=== PATIENT | male | born 1985 | race Caucasian/White ===

== ENCOUNTER → 2021-11-15 | Outpatient (CLI) | payer BC ==
[~2021-11-15] MED LIST: ABILIFY10 MG PO; CIALIS2.5 MG PO; NEURONTIN300 MG PO; OMEPRAZOLE40 MG PO; SINGULAIR10 MG PO; TESTOSTERONE IM; XYZAL5 MG PO
== END ==
LOC: NM 11:02
PROVIDERS: ATTEND Internal Medicine Gastroenterology
DX: K80.80 Other cholelithiasis without obstruction (principal)
CPT/HCPCS: 78227; A9537

== ENCOUNTER 2021-11-16 05:26 | Inpatient (IN) | payer BC ==
[~2021-11-16] VITALS: Ht 185.4 cm; Wt 165.6 kg
[2021-11-16] MEDS ORDERED: SODIUM CHLORIDE 0.9% 1000ML 1,000 ML IV STA (05:36)
[2021-11-16] MEDS ORDERED: FENTANYL CITRATE/PF 100MCG/2 ML INJ IV PRN (05:45)
[2021-11-16] MEDS ORDERED: ONDANSETRON HCL INJ 2MG/ML 2ML 2 MG/ML VIAL IV PRN ×2 (05:45→06:45)
[2021-11-16 05:49] LABS: BASOPHILS # (AUTO) 0.1 (0.0-0.1); BASOPHILS % 0.6 % (0.0-1.0); EOSINOPHILS # (AUTO) 0.2 (0.0-0.4); EOSINOPHILS % 2.5 % (0.0-6.0); HEMATOCRIT 55.1 % (38.2-49.6); HEMOGLOBIN 17.9 g/dL (14.0-18.0); LYMPHOCYTES # (AUTO) 2.9 (1.0-3.2); LYMPHOCYTES % 35.2 % (18.0-39.1); MEAN CORPUSCULAR HEMOGLOBIN 28.8 pg (28-32); MEAN CORPUSCULAR HGB CONC 32.5 g/dL (31-35); MEAN CORPUSCULAR VOLUME 88.6 fL (81-99); MONOCYTES # (AUTO) 0.6 (0.2-0.8); MONOCYTES % 7.5 % (4.4-11.3); NEUTROPHILS # (AUTO) 4.4 (2.1-6.9); NEUTROPHILS % 53.8 % (38.7-80.0); PLATELET COUNT 209 x10e3/uL (140-360); RED BLOOD COUNT 6.22 x10e6/uL (4.3-5.7); RED CELL DISTRIBUTION WIDTH 13.1 % (11.7-14.4)
[2021-11-16] MEDS ORDERED: SODIUM CHLORIDE 0.9% 1000ML 1,000 ML ONE (05:50)
[2021-11-16] MEDS ORDERED: FENTANYL CITRATE/PF 100MCG/2 ML INJ ONE (05:52)
[2021-11-16 06:11] LABS: CLARITY,URINE SL CLOUDY (CLEAR); COLOR,URINE YELLOW (YELLOW); KETONES,URINE NEGATIVE (NEGATIVE); LEUKOCYTE ESTERASE ,URINE NEGATIVE (NEGATIVE); NITRITE,URINE NEGATIVE (NEGATIVE); PROTEIN,URINE DIPSTICK NEGATIVE (NEGATIVE); URINE UROBILINOGEN 0.2 mg/dL (0.2 - 1)
[2021-11-16 06:14] LABS: ALBUMIN 3.9 g/dL (3.5-5.0); ALBUMIN/GLOBULIN RATIO 1.2 (0.8-2.0); ANION GAP 13.6 mmol/L (8-16); CALCIUM 9.4 mg/dL (8.4-10.2); CREATININE, SERUM 1.04 mg/dL (0.72-1.25); POTASSIUM 3.6 mmol/L (3.5-5.1)
[2021-11-16 06:30] LABS: BACTERIA,URINE FEW /HPF; EPITHELIAL CELLS,URINE FEW /LPF; RBC,URINE 0-5 /HPF (0-5); WBC,URINE (MAN) 0-5 /HPF (0-5)
[2021-11-16 06:31] LABS: MUCUS,URINE MODERATE (RARE)
[2021-11-16] MEDS ORDERED: Morphine 4mg Syringe 4 MG/ML INJ IV PRN (06:45)
[2021-11-16] MEDS: SODIUM CHLORIDE 0.9% 1000ML 1,000 ML IV SCH ×3 (06:55→21:58)
[2021-11-16 09:58] VITALS: BP 140/74
[2021-11-16 10:11] VITALS: BP 140/74
[2021-11-16 20:00] VITALS: BP 121/64
[2021-11-16 20:40] VITALS: BP 121/67
[2021-11-16] MEDS: LEVOFLOXACIN 500MG/D5W 100ML 100 ML IV SCH (20:44)
[2021-11-16] MEDS: ARIPIPRAZOLE 5 MG TABLET PO SCH (20:45)
[2021-11-16] MEDS: LORATADINE 10 MG TAB PO SCH (20:45)
[2021-11-16] MEDS: GABAPENTIN 300 MG CAP PO SCH (20:45)
[2021-11-16] MEDS: MONTELUKAST SODIUM 10 MG TAB PO SCH (20:45)
[2021-11-16] MEDS ORDERED: PANTOPRAZOLE SOD 40 MG TABEC PO SCH (21:00)
[2021-11-17] VITALS (8 sets, daily range): BP systolic 112–130; BP diastolic 67–84
[2021-11-17] MEDS: SODIUM CHLORIDE 0.9% 1000ML 1,000 ML IV SCH ×3 (05:51→22:21)
[2021-11-17 06:16] LABS: BASOPHILS % 0.5 % (0.0-1.0); EOSINOPHILS # (AUTO) 0.2 (0.0-0.4); EOSINOPHILS % 2.6 % (0.0-6.0); HEMATOCRIT 48.7 % (38.2-49.6); HEMOGLOBIN 15.4 g/dL (14.0-18.0); LYMPHOCYTES # (AUTO) 2.1 (1.0-3.2); LYMPHOCYTES % 34.3 % (18.0-39.1); MEAN CORPUSCULAR HEMOGLOBIN 28.9 pg (28-32); MEAN CORPUSCULAR HGB CONC 31.6 g/dL (31-35); MEAN CORPUSCULAR VOLUME 91.4 fL (81-99); MONOCYTES # (AUTO) 0.5 (0.2-0.8); MONOCYTES % 8.2 % (4.4-11.3); NEUTROPHILS # (AUTO) 3.4 (2.1-6.9); NEUTROPHILS % 54.2 % (38.7-80.0); PLATELET COUNT 162 x10e3/uL (140-360); RED BLOOD COUNT 5.33 x10e6/uL (4.3-5.7); RED CELL DISTRIBUTION WIDTH 13.2 % (11.7-14.4)
[2021-11-17 06:47] LABS: ANION GAP 12.2 mmol/L (8-16); CALCIUM 8.8 mg/dL (8.4-10.2); CREATININE, SERUM 1.08 mg/dL (0.72-1.25); POTASSIUM 4.2 mmol/L (3.5-5.1)
[2021-11-17] MEDS ORDERED: DEXAMETHASONE SOD PHOS INJ 4 MG/ML SDV ONE (12:47)
[2021-11-17] MEDS ORDERED: POVIDONE IODINE 0.05% 0.05 % ML PO ONE (12:47)
[2021-11-17] MEDS ORDERED: KETOROLAC TROMETHAMINE 30 MG/ML VIAL ONE (12:47)
[2021-11-17] MEDS ORDERED: ONDANSETRON HCL INJ 2MG/ML 2ML 2 MG/ML VIAL ONE (12:47)
[2021-11-17] MEDS ORDERED: GLYCOPYRROLATE INJ 0.2 MG/ML VIAL ONE (12:47)
[2021-11-17] MEDS ORDERED: SUCCINYLCHOLINE CHLORIDE 20 MG/ML 10ML VIAL ONE (12:47)
[2021-11-17] MEDS ORDERED: LIDOCAINE HCL 2% LOCAL INJ 5 ML SDV VIAL INJ ONE (12:47)
[2021-11-17] MEDS ORDERED: ROCURONIUM BROMIDE 10 MG/ML 5ML VIAL IV ONE (12:47)
[2021-11-17] MEDS ORDERED: SEVOFLURANE INHAL SOLN 250 ML PEN BTL ONE (12:47)
[2021-11-17] MEDS ORDERED: PROPOFOL IV EMULSION 10 MG/ML 20 ML VIAL ONE (12:47)
[2021-11-17] MEDS ORDERED: NEOSTIGMINE 1 MG/ML 10ML VIAL ONE (12:47)
[2021-11-17] MEDS ORDERED: Morphine 10mg syringe 10 MG/ML INJ ONE (13:03)
[2021-11-17] MEDS ORDERED: MIDAZOLAM HCL 2 MG/2 ML VIAL ONE (13:03)
[2021-11-17] MEDS ORDERED: FENTANYL CITRATE/PF 100MCG/2 ML INJ ONE (13:03)
[2021-11-17] MEDS ORDERED: BUPIVACAINE 0.25% 30ML SDV ONE (16:31)
[2021-11-17] MEDS ORDERED: ACETAMINOPHEN 1000 MG/100 ML IV PRN (18:00)
[2021-11-17] MEDS ORDERED: HYDROCODONE/APAP 7.5MG-325MG 1 EA TAB PO PRN (18:00)
[2021-11-17] MEDS: LEVOFLOXACIN 500MG/D5W 100ML 100 ML IV SCH (22:20)
[2021-11-17] MEDS: LORATADINE 10 MG TAB PO SCH (22:21)
[2021-11-17] MEDS: MONTELUKAST SODIUM 10 MG TAB PO SCH (22:21)
[2021-11-17] MEDS: GABAPENTIN 300 MG CAP PO SCH (22:21)
[2021-11-17] MEDS: ARIPIPRAZOLE 5 MG TABLET PO SCH (22:21)
[2021-11-18 00:42] VITALS: BP 119/62
[2021-11-18 04:50] VITALS: BP 123/67
[2021-11-18 06:11] LABS: BASOPHILS % 0.1 % (0.0-1.0); EOSINOPHILS % 0.1 % (0.0-6.0); HEMATOCRIT 51.1 % (38.2-49.6); HEMOGLOBIN 16.8 g/dL (14.0-18.0); LYMPHOCYTES # (AUTO) 1.2 (1.0-3.2); LYMPHOCYTES % 13.3 % (18.0-39.1); MEAN CORPUSCULAR HEMOGLOBIN 29.3 pg (28-32); MEAN CORPUSCULAR HGB CONC 32.9 g/dL (31-35); MONOCYTES # (AUTO) 0.5 (0.2-0.8); NEUTROPHILS # (AUTO) 7.5 (2.1-6.9); NEUTROPHILS % 81.2 % (38.7-80.0); PLATELET COUNT 181 x10e3/uL (140-360); RED BLOOD COUNT 5.74 x10e6/uL (4.3-5.7); RED CELL DISTRIBUTION WIDTH 12.8 % (11.7-14.4)
[2021-11-18 06:42] LABS: ALBUMIN 3.6 g/dL (3.5-5.0); ALBUMIN/GLOBULIN RATIO 1.2 (0.8-2.0); ANION GAP 12.6 mmol/L (8-16); CALCIUM 9.6 mg/dL (8.4-10.2); CREATININE, SERUM 1.06 mg/dL (0.72-1.25); POTASSIUM 4.6 mmol/L (3.5-5.1)
[2021-11-18] MEDS: SODIUM CHLORIDE 0.9% 1000ML 1,000 ML IV SCH (06:45)
[2021-11-18 08:06] VITALS: BP 126/68
[2021-11-18 09:54] VITALS: BP 126/68
[2021-11-18 12:06] VITALS: BP 132/67
[2021-11-18] MEDS ORDERED: LEVOFLOXACIN250 MG PO (13:13)
[2021-11-18] MEDS ORDERED: TYLENOL#3 PO (13:14)
== END 2021-11-18 13:35 | disposition home or self-care (01) | DRG 418 ==
LOC: ER 05:44 → ERHOLD 06:48 → MED/SURG 09:35
PROC: 0FT44ZZ Resection of Gallbladder, Percutaneous Endoscopic Approach (ICD-10-PCS; principal; 2021-11-17 13:30)
DX: K80.00 Calculus of gallbladder with acute cholecystitis without obstruction (principal); Z68.42 Body mass index [BMI] 45.0-49.9, adult; Z98.84 Bariatric surgery status; E66.01 Morbid (severe) obesity due to excess calories; Z20.822 Contact with and (suspected) exposure to COVID-19
CPT/HCPCS: 36415; 80048; 80053; 81001; 83690; 85025; 88304; 94799; 99284; C1766; J0330; J1100; J1885; J1956; J2001; J2250; J2270; J2405; J2710; J3010; J7030; U0002

== ENCOUNTER 2022-01-29 03:29 | Inpatient (IN) | payer BC ==
[~2022-01-29] VITALS: Ht 185.4 cm; Wt 165.6 kg
[~2022-01-29 03:29] MED LIST changes: +LEVOFLOXACIN250 MG PO; +TYLENOL#3 PO
[2022-01-29] MEDS ORDERED: KETOROLAC TROMETHAMINE 30 MG/ML VIAL IV STA (03:35)
[2022-01-29] MEDS ORDERED: ACETAMINOPHEN 325 MG TAB PO ONE (03:45)
[2022-01-29] MEDS ORDERED: SODIUM CHLORIDE 0.9% 1000ML 1,000 ML IV SCH ×2 (03:45→05:00)
[2022-01-29 04:05] LABS: BASOPHILS % 0.2 % (0.0-1.0); HEMATOCRIT 50.9 % (38.2-49.6); LYMPHOCYTES # (AUTO) 0.8 (1.0-3.2); MEAN CORPUSCULAR HEMOGLOBIN 30.4 pg (28-32); MEAN CORPUSCULAR HGB CONC 33.4 g/dL (31-35); MEAN CORPUSCULAR VOLUME 91.1 fL (81-99); MONOCYTES # (AUTO) 0.8 (0.2-0.8); NEUTROPHILS # (AUTO) 18.5 (2.1-6.9); NEUTROPHILS % 91.2 % (38.7-80.0); PLATELET COUNT 187 x10e3/uL (140-360); RED BLOOD COUNT 5.59 x10e6/uL (4.3-5.7); RED CELL DISTRIBUTION WIDTH 15.5 % (11.7-14.4)
[2022-01-29 04:22] LABS: ALBUMIN 3.7 g/dL (3.5-5.0); ALBUMIN/GLOBULIN RATIO 1.1 (0.8-2.0); ANION GAP 11.8 mmol/L (8-16); CALCIUM 8.8 mg/dL (8.4-10.2); CREATININE, SERUM 1.2 mg/dL (0.72-1.25); POTASSIUM 3.8 mmol/L (3.5-5.1)
[2022-01-29 04:23] LABS: CLARITY,URINE CLEAR (CLEAR); COLOR,URINE YELLOW (YELLOW); KETONES,URINE NEGATIVE (NEGATIVE); LEUKOCYTE ESTERASE ,URINE NEGATIVE (NEGATIVE); NITRITE,URINE NEGATIVE (NEGATIVE); PROTEIN,URINE DIPSTICK 1+ (NEGATIVE)
[2022-01-29 04:24] LABS: URINE UROBILINOGEN 1 mg/dL (0.2 - 1)
[2022-01-29 04:26] LABS: BACTERIA,URINE MODERATE /HPF; EPITHELIAL CELLS,URINE FEW /LPF; RBC,URINE 0-5 /HPF (0-5)
[2022-01-29 04:27] LABS: MUCUS,URINE MANY (RARE)
[2022-01-29] MEDS ORDERED: IOPAMIDOL 370 MG/ML 100 ML INFUS..BTL INJ ONE (04:37)
[2022-01-29] MEDS: LEVOFLOXACIN 750MG/D5W 150ML 150 ML IV SCH (04:58)
[2022-01-29] MEDS: SODIUM CHLORIDE 0.9% 1000ML 1,000 ML IV SCH ×5 (05:14→22:33)
[2022-01-29] MEDS ORDERED: Morphine 2mg Syringe 2 MG/ML SYR IV PRN (05:15)
[2022-01-29] MEDS ORDERED: ONDANSETRON HCL INJ 2MG/ML 2ML 2 MG/ML VIAL IV PRN (05:15)
[2022-01-29 08:25] VITALS: BP 120/66
[2022-01-29 11:36] VITALS: BP 106/46
[2022-01-29] MEDS ORDERED: ACETAMINOPHEN 325 MG TAB PO PRN (12:15)
[2022-01-29] MEDS: Vancomycin IV 1 GM in SODIUM CHLORIDE 0.9% 250ML 250 ML IV SCH ×2 (13:00→23:52)
[2022-01-29 16:19] VITALS: BP 101/58
[2022-01-29 20:00] VITALS: BP 107/48
[2022-01-29] MEDS ORDERED: ARIPIPRAZOLE 5 MG TABLET PO SCH (21:00)
[2022-01-29] MEDS ORDERED: LORATADINE 10 MG TAB PO SCH (21:00)
[2022-01-29] MEDS ORDERED: GABAPENTIN 300 MG CAP PO SCH (21:00)
[2022-01-29] MEDS ORDERED: MONTELUKAST SODIUM 10 MG TAB PO SCH (21:00)
[2022-01-29] MEDS ORDERED: ARIPIPRAZOLE 20 MG TAB PO SCH (21:00)
[2022-01-30] VITALS (7 sets, daily range): BP systolic 116–134; BP diastolic 61–84
[2022-01-30] MEDS: SODIUM CHLORIDE 0.9% 1000ML 1,000 ML IV SCH ×2 (04:57→13:41)
[2022-01-30 05:50] LABS: BASOPHILS % 0.3 % (0.0-1.0); EOSINOPHILS # (AUTO) 0.1 (0.0-0.4); EOSINOPHILS % 0.5 % (0.0-6.0); HEMATOCRIT 43.8 % (38.2-49.6); HEMOGLOBIN 14.3 g/dL (14.0-18.0); LYMPHOCYTES # (AUTO) 1.7 (1.0-3.2); LYMPHOCYTES % 17.4 % (18.0-39.1); MEAN CORPUSCULAR HGB CONC 32.6 g/dL (31-35); MONOCYTES # (AUTO) 0.9 (0.2-0.8); MONOCYTES % 9.1 % (4.4-11.3); NEUTROPHILS # (AUTO) 7.2 (2.1-6.9); NEUTROPHILS % 72.3 % (38.7-80.0); PLATELET COUNT 130 x10e3/uL (140-360); RED BLOOD COUNT 4.76 x10e6/uL (4.3-5.7); RED CELL DISTRIBUTION WIDTH 15.2 % (11.7-14.4)
[2022-01-30 06:24] LABS: ANION GAP 7.5 mmol/L (8-16); CREATININE, SERUM 0.87 mg/dL (0.72-1.25); POTASSIUM 3.5 mmol/L (3.5-5.1)
[2022-01-30] MEDS: LEVOFLOXACIN 750MG/D5W 150ML 150 ML IV SCH (09:00)
[2022-01-30] MEDS: Vancomycin IV 1 GM in SODIUM CHLORIDE 0.9% 250ML 250 ML IV SCH (12:15)
== END 2022-01-30 16:45 | disposition home or self-care (01) | DRG 872 ==
LOC: ER 03:33 → ERHOLD 05:08 → MED/SURG3 07:52
PROVIDERS: ADMIT Internal Medicine; ATTEND Internal Medicine
DX: A41.9 Sepsis, unspecified organism (principal); L03.115 Cellulitis of right lower limb; N39.0 Urinary tract infection, site not specified; Z68.42 Body mass index [BMI] 45.0-49.9, adult; N41.9 Inflammatory disease of prostate, unspecified; E66.01 Morbid (severe) obesity due to excess calories; Z88.1 Allergy status to other antibiotic agents; Z91.010 Allergy to peanuts; Z20.822 Contact with and (suspected) exposure to COVID-19
CPT/HCPCS: 36415; 71045; 74177; 80048; 80053; 81001; 83605; 85025; 87040; 87086; 93005; 99284; J1885; J3370; J7030; J7050; Q9967; U0002

== ENCOUNTER 2024-06-03 20:26 | Observation (INO) | payer BC ==
[~2024-06-03] VITALS: Ht 193 cm; Wt 151.5 kg
[2024-06-03 20:45] VITALS: TEMP 98
[2024-06-03] MEDS: Morphine 4mg INJECTION 4 MG/ML INJ IV ONE (21:20)
[2024-06-03] MEDS: KETOROLAC TROMETHAMINE 30 MG/ML VIAL IV STA (21:22)
[2024-06-03] MEDS: FENTANYL CITRATE/PF 100MCG/2 ML INJ IV STA (21:50)
[2024-06-04] VITALS (9 sets, daily range): BP systolic 126–160; BP diastolic 69–98; PULSE 51–66; RESP 16–18; TEMP 98–98.9; O2SAT 93–99
[2024-06-04] MEDS: FENTANYL CITRATE/PF 100MCG/2 ML INJ IV STA (00:37)
[2024-06-04] MEDS: ONDANSETRON HCL INJ 2MG/ML 2ML 2 MG/ML VIAL IV PRN (02:04)
[2024-06-04] MEDS: Morphine 4mg INJECTION 4 MG/ML INJ IV PRN (02:04)
[2024-06-04] MEDS: SODIUM CHLORIDE 0.9% 1000ML 1,000 ML IV SCH (02:16)
[2024-06-04] MEDS ORDERED: DEXAMETHASONE SOD PHOS INJ 4 MG/ML SDV ONE (10:55)
[2024-06-04] MEDS ORDERED: LIDOCAINE HCL 2% LOCAL INJ 5 ML SDV VIAL INJ ONE (10:55)
[2024-06-04] MEDS ORDERED: ROCURONIUM BROMIDE 10 MG/ML 5ML VIAL IV ONE (10:55)
[2024-06-04] MEDS ORDERED: ONDANSETRON HCL INJ 2MG/ML 2ML 2 MG/ML VIAL ONE (10:55)
[2024-06-04] MEDS ORDERED: SEVOFLURANE INHAL SOLN 250 ML PEN BTL ONE (10:55)
[2024-06-04] MEDS ORDERED: SUCCINYLCHOLINE CHLORIDE 20 MG/ML 10ML VIAL ONE (10:55)
[2024-06-04] MEDS ORDERED: PROPOFOL IV EMULSION 10 MG/ML 20 ML VIAL ONE (10:55)
[2024-06-04] MEDS ORDERED: SUGAMMADEX SODIUM 200 MG/2 ML VIAL IV ONE (10:55)
[2024-06-04] MEDS ORDERED: EPINEPHRINE HCL 1:1000 1ML 1 MG/ML AMP ONE (11:15)
[2024-06-04] MEDS ORDERED: ROPIVACAINE 0.5% 5 MG/ML 30 ML SDV ONE (11:15)
[2024-06-04] MEDS ORDERED: FENTANYL CITRATE/PF 100MCG/2 ML INJ ONE (12:56)
[2024-06-04] MEDS ORDERED: MIDAZOLAM HCL 2 MG/2 ML VIAL ONE (12:56)
== END 2024-06-04 16:10 | disposition home or self-care (01) ==
LOC: ER 20:36 → ERHOLD 06-04 01:14 → MED/SURG 06-04 02:14
PROVIDERS: ADMIT Internal Medicine; ATTEND Internal Medicine
DX: S43.084A Other dislocation of right shoulder joint, initial encounter (principal); E66.01 Morbid (severe) obesity due to excess calories; Z68.41 Body mass index [BMI] 40.0-44.9, adult; F41.9 Anxiety disorder, unspecified; K21.9 Gastro-esophageal reflux disease without esophagitis; Z98.84 Bariatric surgery status; Z20.822 Contact with and (suspected) exposure to COVID-19; Z88.0 Allergy status to penicillin; Z88.1 Allergy status to other antibiotic agents
CPT/HCPCS: 23655; 64415; 73020 ×2; 73030; 76000; 94799; 99284; G0378; J0171; J0330; J1100; J1885; J2001; J2250; J2270 ×2; J2405; J2704; J2795; J3010 ×2; J7030; U0002

== ENCOUNTER 2024-06-10 05:16 | Emergency (ER) | payer BC ==
[~2024-06-10] VITALS: Ht 193 cm; Wt 151.5 kg
[2024-06-10 05:34] VITALS: TEMP 97.8
[2024-06-10 06:59] VITALS: PULSE 58; RESP 17
[2024-06-10] MEDS ORDERED: ETOMIDATE 2 MG/ML 10 ML INJ IV STA (07:02)
[2024-06-10] MEDS ORDERED: FENTANYL CITRATE/PF 100MCG/2 ML INJ ONE (07:15)
[2024-06-10] MEDS: ETOMIDATE 40 MG/ 20ML VIAL IV STA (07:15)
[2024-06-10] MEDS: ONDANSETRON HCL INJ 2MG/ML 2ML 2 MG/ML VIAL IV STA (07:15)
[2024-06-10] MEDS: SODIUM CHLORIDE 0.9% 500ML 500 ML IV ONE (07:17)
[2024-06-10] MEDS: MIDAZOLAM HCL 2 MG/2 ML VIAL IV STA (07:35)
[2024-06-10] MEDS: FENTANYL CITRATE/PF 100MCG/2 ML INJ IV ONE (08:49)
[2024-06-10 08:51] VITALS: BP 136/87; PULSE 61; RESP 18; O2SAT 96
[2024-06-10] MEDS ORDERED: MIDAZOLAM HCL 2 MG/2 ML VIAL ONE (12:28)
[2024-06-10] MEDS ORDERED: ETOMIDATE 2 MG/ML 10 ML INJ IV ONE (12:28)
== END 2024-06-10 08:57 | disposition home or self-care (01) ==
LOC: ER 05:22
DX: S43.015A Anterior dislocation of left humerus, initial encounter (principal); X58.XXXA Exposure to other specified factors, initial encounter; K21.9 Gastro-esophageal reflux disease without esophagitis; F41.9 Anxiety disorder, unspecified; E66.01 Morbid (severe) obesity due to excess calories
CPT/HCPCS: 23655; 73020; 73030; 99283; J2250; J2405; J3010; J7040